=== PATIENT | female | born 1995 | race African-American/Black ===

== ENCOUNTER 2016-09-03 03:30 | Emergency (ER) | payer MEDICAID, OTHER ==
[~2016-09-03] VITALS: Ht 170.2 cm; Wt 102.0 kg
[~2016-09-03 03:30] MED LIST: ALBUTEROL
[2016-09-03 06:35] VITALS: BP 106/74
== END 2016-09-03 07:02 | disposition home or self-care (01) ==
LOC: ER 06:35
DX: L02.412 Cutaneous abscess of left axilla (principal); J45.909 Unspecified asthma, uncomplicated; Z91.010 Allergy to peanuts; Z98.890 Other specified postprocedural states
CPT/HCPCS: 99283

== ENCOUNTER 2017-12-20 09:07 | Emergency (ER) | payer MEDICAID, OTHER ==
[~2017-12-20] VITALS: Ht 170.2 cm; Wt 107.8 kg
[2017-12-20 10:07] VITALS: BP 117/77
== END 2017-12-20 10:55 | disposition home or self-care (01) ==
LOC: ER 10:48
DX: H00.012 Hordeolum externum right lower eyelid (principal); F12.10 Cannabis abuse, uncomplicated; Z98.890 Other specified postprocedural states; Z91.018 Allergy to other foods
CPT/HCPCS: 99283

== ENCOUNTER 2018-10-16 23:11 | Emergency (ER) | payer MEDICAID ==
[~2018-10-16] VITALS: Ht 170.2 cm; Wt 105.0 kg
[2018-10-17] MEDS ORDERED: IPRATROPIUM BROMIDE (0.02%) 0.5MG/2.5ML NEB HHN STA
[2018-10-17] MEDS ORDERED: ALBUTEROL (0.083%) 2.5MG/3ML NEB HHN STA
[2018-10-17] MEDS ORDERED: PREDNISONE 20MG TABLET PO STA
[2018-10-17 01:52] VITALS: BP 120/75
== END 2018-10-17 02:01 | disposition home or self-care (01) ==
LOC: ER 23:11
DX: J45.901 Unspecified asthma with (acute) exacerbation (principal); R26.2 Difficulty in walking, not elsewhere classified; F12.10 Cannabis abuse, uncomplicated; Z79.899 Other long term (current) drug therapy
CPT/HCPCS: 93005; 94644; 99285; J7512; J7611; Z7610

== ENCOUNTER 2019-02-18 13:30 | Emergency (ER) | payer MEDICAID ==
[~2019-02-18] VITALS: Ht 170.2 cm; Wt 108.5 kg
[2019-02-18] MEDS ORDERED: ALBUTEROL (0.083%) 2.5MG/3ML NEB HHN ONE (18:00)
[2019-02-18] MEDS ORDERED: ONDANSETRON 4MG ODT PO ONE (18:00)
[2019-02-18] MEDS ORDERED: IPRATROPIUM BROMIDE (0.02%) 0.5MG/2.5ML NEB HHN ONE (18:00)
[2019-02-18 19:15] LABS: CLARITY URINE CLOUDY (CLEAR); COLOR URINE YELLOW (YELLOW); KETONES URINE NEGATIVE (NEGATIVE); LEUKOCYTE ESTERASE URINE NEGATIVE (NEGATIVE); NITRITE URINE NEGATIVE (NEGATIVE); OCCULT BLOOD URINE NEGATIVE (NEGATIVE); PH URINE 7.5 (4.5-8.0); PROTEIN URINE NEGATIVE (NEGATIVE); SPECIFIC GRAVITY URINE 1.017 (1.005-1.030)
[2019-02-18 19:42] VITALS: BP 121/79
== END 2019-02-18 19:43 | disposition home or self-care (01) ==
LOC: ER 13:30
DX: J06.9 Acute upper respiratory infection, unspecified (principal); B34.9 Viral infection, unspecified; J45.909 Unspecified asthma, uncomplicated; F12.10 Cannabis abuse, uncomplicated; Z79.899 Other long term (current) drug therapy
CPT/HCPCS: 81003; 81025; 87070; 87430; 87804; 94640; 99283; J7611; Q0162; Z7610

== ENCOUNTER 2023-01-23 08:50 | Emergency (ER) | payer MEDICAID ==
[~2023-01-23] VITALS: Ht 175.3 cm; Wt 90.0 kg
[2023-01-23 08:59] VITALS: BP 121/73
[2023-01-23] MEDS ORDERED: ALBUTEROL (0.083%) 2.5MG/3ML NEB HHN ONE (10:00)
[2023-01-23 10:45] VITALS: PULSE 70; RESP 20; O2SAT 95
[2023-01-23] MEDS ORDERED: ALBU05 NEB (11:36)
[2023-01-23] MEDS ORDERED: P50 MT (11:37)
[2023-01-23] MEDS ORDERED: ALBU6.7H15 INH (12:01)
[2023-01-23 12:03] VITALS: PULSE 90; RESP 20; TEMP 98.5
== END 2023-01-23 12:04 | disposition home or self-care (01) ==
LOC: ER 08:50
DX: J45.901 Unspecified asthma with (acute) exacerbation (principal)
CPT/HCPCS: 94640; 99283; Z7610 ×2